=== PATIENT | female | born 1995 | race Caucasian/White ===

== ENCOUNTER 2017-04-28 19:46 | Emergency (ER) | payer OTHER ==
[2017-04-28] MEDS ORDERED: AMOXICILLIN 250 MG CAPSULE PO STA (20:06)
[2017-04-28] MEDS ORDERED: HYDROcod/ACETAM 5/325 MG TABLET PO STA (20:06)
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
[2017-04-28] MEDS ORDERED: HYDROcod/ACETAM 5/325 MG TABLET ONE (20:14)
[2017-04-28] MEDS ORDERED: AMOXICILLIN 250 MG CAPSULE PO ONE (20:14)
[2017-04-28 20:36] VITALS: BP 127/85
--- NOTE | 2017-04-28 20:48 | XRAY Preliminary Report ---
Exam: XR Sacrum/Coccyx IMPRESSION: 1. No definable sacrococcygeal fracture or malalignment. 2. Sclerotic changes and possible early erosive disease about the bilateral sacroiliac joints. This c ould be secondary to elevated joints stress and/or sacroiliitis. [facility] SITE ID: [id number]
--- NOTE | 2017-04-28 20:51 | XRAY Report ---
EXAM: SACRUM AND COCCYX RADIOGRAPHY EXAM DATE: 04/28/2017 08:23 PM. HISTORY: Sacrococcygeal injury, pain. COMPARISONS: None. TECHNIQUE: 2 views. FINDINGS: Alignment: Normal. The sacrum and coccyx are normally aligned. Bones: No fracture or bone lesion identified. Sclerotic changes are present primarily about the iliac side of the bilateral sacroiliac joints. Joints: The sacroiliac joint spaces are well-preserved. No significant osteoarthritis evident. There is some subcortical irregularity which could represent tiny erosions. Soft Tissues: Unremarkable. IMPRESSION: 1. No definable sacrococcygeal fracture or malalignment. 2. Sclerotic changes and possible early erosive disease about the bilateral sacroiliac joints. This c ould be secondary to elevated joints stress and/or sacroiliitis. [facility] Referring Provider Line: [phone] SITE ID: [id number]
== END 2017-04-28 20:37 | disposition home or self-care (01) ==
LOC: ED 19:46
DX: M46.1 Sacroiliitis, not elsewhere classified (principal); H66.001 Acute suppurative otitis media without spontaneous rupture of ear drum, right ear
CPT/HCPCS: 72220; 99283; A9270

== ENCOUNTER 2017-07-22 22:00 | Emergency (ER) | payer OTHER ==
[2017-07-22 22:27] LABS: BILIRUBIN,URINE NEGATIVE (NEGATIVE); PH,URINE 6.5 PH (5.0-7.5)
[2017-07-22 22:30] LABS: HCG UR QUAL NEGATIVE; UA CHARGE (STRIP ONLY) YES; UR CULTURE IF IND NOT INDICATED
--- NOTE | 2017-07-22 22:31 | ED Physician Documentation ---
PD HPI ABD PAIN - Stated complaint Stated Complaint: STOMACH PX - Chief complaint Chief Complaint: Abd Pain - History obtained from History obtained from: Patient - History of Present Illness Timing - onset: How many hours ago (4), Today Timing - duration: Hours (4) Timing - details: Abrupt onset, Still present Quality: Cramping, Aching Location: Periumbilical Radiation: No: Chest, Lower back, Left flank, Right flank Improved by: No: Eating, Vomiting Worsened by: Eating, Position. No: Breathing Associated symptoms: Nausea, Vomiting, Diarrhea, Hematochezia (after several episodes of diarrhea, noted some trace blood and mucous in diarrhea.), Loss of appetite. No: Fever, Hematemesis, Near syncope / syncope Similar symptoms before: Has not had sx before Recently seen: Not recently seen Review of Systems Constitutional: denies: Fever, Chills Nose: denies: Rhinorrhea / runny nose, Congestion Throat: denies: Sore throat Cardiac: denies: Chest pain / pressure Respiratory: denies: Cough GI: reports: Abdominal Pain (cramping mid abdomen), Nausea, Vomiting, Diarrhea. denies: Hematemesis : denies: Dysuria, Frequency Skin: denies: Rash, Lesions Neurologic: reports: Generalized weakness. 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 : None HEENT: None Psych: None Musculoskeletal: None Derm: None - Past Surgical History Past Surgical History: No - Present Medications Home Medications: Ambulatory Orders Medication Instructions Recorded Confirmed Diphenoxylate/Atropine [Lomotil] 1 each PO QID PRN #15 tablet 07/23/17 Ondansetron Odt [Zofran] 4 mg TL Q6H PRN #15 tablet 07/23/17 - Allergies Allergies/Adverse Reactions: Allergies Allergy/AdvReac Type Severity Reaction Status Date / Time No Known Drug Allergies Allergy Verified 07/22/17 22:06 - Social History Does the pt smoke?: No Smoking Status: Never smoker Does the pt drink ETOH?: No Does the pt have substance abuse?: No - Immunizations Immunizations are current?: Yes - POLST Patient has POLST: No PD ED PE NORMAL - Vitals Vital signs reviewed: Yes - General General: Alert and oriented X 3, Well developed/nourished, Other (appears uncomfortable and vomiting) - HEENT HEENT: PERRL, Pharynx benign - Neck Neck: Supple, no meningeal sign, No adenopathy - Cardiac Cardiac: RRR, No murmur - Respiratory Respiratory: Clear bilaterally - Abdomen Abdomen: Normal bowel sounds, Soft, Non distended, No organomegaly, Other ( mildly tender mid abdomen without guarding nor percussion tenderness. ) - Female Female : Deferred - Rectal Rectal: Deferred - Back Back: No CVA TTP - Derm Derm: Normal color, Warm and dry - Neuro Neuro: Alert and oriented X 3, No motor deficit, Normal speech Results - Vitals Vitals: Vital Signs - 24 hr 07/22/17 07/22/17 07/23/17 22:06 23:19 00:11 Temperature 37.1 C Heart Rate 75 64 78 Respiratory 16 14 16 Rate Blood Pressure 107/75 101/69 111/76 O2 Saturation 98 97 98 07/23/17 00:45 Temperature Heart Rate 78 Respiratory 16 Rate Blood Pressure 113/71 O2 Saturation 98 Oxygen O2 Source Room air - Labs Labs: Laboratory Tests 07/22/17 07/22/17 07/22/17 22:20 22:35 22:35 WBC 15.1 H RBC 4.71 Hgb 14.4 Hct 42.7 MCV 90.6 MCH 30.5 MCHC 33.7 RDW 12.9 Plt Count 292 MPV 8.1 Neut # 12.7 H Lymph # 1.7 Stone # 0.6 Eos # 0.1 Baso # 0.1 Absolute Nucleated RBC 0.00 Nucleated RBCs 0.0 Sodium 139 Potassium 3.8 Chloride 105 Carbon Dioxide 25 Anion Gap 9.0 BUN 12 Creatinine 0.7 Estimated GFR (MDRD) 106 Glucose 161 H Calcium 9.4 Total Bilirubin 0.7 AST 22 ALT 21 Alkaline Phosphatase 75 Total Protein 7.7 Albumin 4.3 Globulin 3.4 Albumin/Globulin Ratio 1.3 Lipase 25 Urine Color YELLOW Urine Clarity CLEAR Urine pH 6.5 Ur Specific [place] 1.020 Urine Protein NEGATIVE Urine Glucose (UA) NEGATIVE Urine Ketones NEGATIVE Urine Occult Blood NEGATIVE Urine Nitrite NEGATIVE Urine Bilirubin NEGATIVE Urine Urobilinogen 0.2 (NORMAL) Ur Leukocyte Esterase NEGATIVE Ur Microscopic Review NOT INDICATED Urine Culture Comments NOT INDICATED Urine HCG, Qual NEGATIVE PD MEDICAL DECISION MAKING - ED course Complexity details: re-evaluated patient (feeling much better with meds and fluids. ), considered differential (seems likely viral GE or food related. Improved quite well with IV fluids and meds. Recheck abd is with mild tenderness mid abd. Not tender RLQ. Cautioned about symptoms to suggest appy or other process. ), d/w patient Departure - Departure Disposition: 01 Home, Self Care Clinical Impression: Nausea vomiting and diarrhea Condition: Stable Record reviewed to determine appropriate education?: Yes Instructions: ED Diet Vomiting Diarrhea Follow-Up: AISHWARYA Ahmadi [Provider Group] Prescriptions: Diphenoxylate/Atropine [Lomotil] 1 each PO QID PRN #15 tablet PRN Reason: Diarrhea Ondansetron Odt [Zofran] 4 mg TL Q6H PRN #15 tablet PRN Reason: Nausea / Vomiting Comments: Small frequent fluids for hydration. For food start initially with simple carbohydrates such as rice pasta and breads. Progress diet as able. Use ondansetron if needed for nausea and Lomotil for diarrhea. He can use the hydrocodone for pain every 4-6 hours and transition to just Tylenol if needed for mild pains. Recheck if not improved over the next 1-2 days as this sounds likely to be a viral gastroenteritis or food related such as food poisoning. However both of these should improve on their own within 12-24 hour timeframe. Recheck if it does not. Discharge Date/Time: 07/23/17 00:49
[2017-07-22] MEDS ORDERED: ONDANSETRON 4 MG/2 ML VIAL IVP STA (22:42)
[2017-07-22] MEDS ORDERED: MORPHINE 2 MG/ML SYRINGE IVP STA (22:42)
[2017-07-22] MEDS ORDERED: KETOROLAC 60 MG/2 ML VIAL IVP STA (22:42)
[2017-07-22] MEDS ORDERED: SODIUM CHLORIDE 0.9% 1,000 ML IV ONE (22:42)
[2017-07-22] MEDS ORDERED: KETOROLAC 30 MG/ML VIAL ONE (22:49)
[2017-07-22] MEDS ORDERED: ONDANSETRON 4 MG/2 ML VIAL ONE (22:49)
[2017-07-22] MEDS ORDERED: MORPHINE 2 MG/ML SYRINGE ONE ×2 (22:49→22:59)
[2017-07-22 22:51] LABS: BASOPHILS # (AUTO) 0.1 10^3/uL (0.0-0.1); BASOPHILS % (AUTO) 0.3 %; EOSINOPHILS # (AUTO) 0.1 10^3/uL (0.0-0.7); EOSINOPHILS % (AUTO) 0.4 %; HCT - HEMATOCRIT 42.7 % (37.0-47.0); HGB - HEMOGLOBIN 14.4 g/dL (12.0-16.0); LYMPHOCYTES # (AUTO) 1.7 10^3/uL (1.5-3.5); LYMPHOCYTES % (AUTO) 11.1 %; MEAN CORPUSCULAR HEMOGLOBIN 30.5 pg (27.0-31.0); MEAN CORPUSCULAR HGB CONC 33.7 g/dL (32.0-36.0); MEAN CORPUSCULAR VOLUME 90.6 fL (81.0-99.0); MEAN PLATELET VOLUME 8.1 fL (7.9-10.8); MONOCYTES # (AUTO) 0.6 10^3/uL (0.0-1.0); MONOCYTES % (AUTO) 4.2 %; NEUTROPHILS # (AUTO) 12.7 10^3/uL (1.5-6.6); RED BLOOD COUNT 4.71 10^6/uL (4.20-5.40); RED CELL DISTRIBUTION WIDTH 12.9 % (12.0-15.0); UNCORRECTED WHITE BLOOD COUNT 15.1 x10^3/uL; WHITE BLOOD COUNT 15.1 x10^3/uL (4.8-10.8)
[2017-07-22 23:04] LABS: CALCIUM 9.4 mg/dL (8.5-10.3); POTASSIUM 3.8 mmol/L (3.5-5.0)
[2017-07-22 23:13] LABS: ALBUMIN/GLOBULIN RATIO 1.3 (1.0-2.2); BILIRUBIN,TOTAL 0.7 mg/dL (0.2-1.0); CREATININE 0.7 mg/dL (0.4-1.0); TOTAL PROTEIN 7.7 g/dL (6.7-8.2)
[2017-07-22] MEDS ORDERED: ONDANSETRON ODT 4 MG Prepack 2 TL PRN (23:56)
[2017-07-22] MEDS ORDERED: DIPHENOX/ATROPINE 2.5/0.025 MG TABLET PO STA (23:56)
[2017-07-22] MEDS ORDERED: HYDROcod/ACET 5/325 Prepack 6 PO ONE (23:56)
[2017-07-22] MEDS ORDERED: HYDROmorphone 1 MG/ML CARPUJECT IVP STA (23:56)
[2017-07-23] MEDS ORDERED: HYDROmorphone 1 MG/ML CARPUJECT ONE (00:07)
[2017-07-23] MEDS ORDERED: ONDANSETRON ODT 4 MG Prepack 2 TL ONE (00:08)
[2017-07-23] MEDS ORDERED: DIPHENOX/ATROPINE 2.5/0.025 MG TABLET PO ONE (00:08)
[2017-07-23] MEDS ORDERED: HYDROcod/ACET 5/325 Prepack 6 PO ONE (00:08)
[2017-07-23 00:49] VITALS: BP 113/71
== END 2017-07-23 00:49 | disposition home or self-care (01) ==
LOC: ED 22:00
DX: R11.2 Nausea with vomiting, unspecified (principal); R19.7 Diarrhea, unspecified; R10.33 Periumbilical pain; E86.0 Dehydration
CPT/HCPCS: 36415; 80053; 81003; 81025; 83690; 85025; 96374; 96375; 99283; 99284; A9270; J1170; J2270; 81001; 87086